=== PATIENT | female | born 1995 | race African-American/Black ===

== ENCOUNTER 2022-08-08 03:22 | Emergency (ER) | payer OTHER ==
[2022-08-08] MEDS ORDERED: LACTATED RINGERS SOLUTION 1000 ML INFUS.BAG IV ONE (04:07)
[2022-08-08] MEDS ORDERED: ONDANSETRON 4 MG/2 ML VIAL IVPUSH ONE (04:07)
[2022-08-08] MEDS ORDERED: ACETAMINOPHEN 1000 MG/100 ML BAG IVPB ONE (04:07)
[2022-08-08] MEDS ORDERED: FAMOTIDINE 20 MG/50 ML IVPB 20 MG/50 ML MG IVPB ONE (04:07)
[2022-08-08] MEDS ORDERED: ONDANSETRON 4 MG/2 ML VIAL ONE (04:12)
[2022-08-08] MEDS ORDERED: ACETAMINOPHEN INJECTION 100 ML IVPB ONE (04:12)
[2022-08-08] MEDS ORDERED: FAMOTIDINE 10 MG/ML VIAL IVPB ONE (04:13)
[2022-08-08 04:43] LABS: HEMATOCRIT 35.3 % (32.4-45.2); HEMOGLOBIN 11.6 GM/dL (10.7-15.3); MCH 30.8 pg (25.7-33.7); MCHC 32.8 g/dl (32.0-36.0); MEAN PLT VOLUME 8.8 fl (7.5-11.1); PLATELET COUNT 235 10^3/uL (134-434); RBC 3.76 M/mm3 (3.60-5.2); RDW 14.2 % (11.6-15.6); WHITE BLOOD COUNT 6.2 K/mm3 (4.0-10.0)
[2022-08-08 04:53] LABS: INR 1.16 (0.83-1.09); PROTHROMBIN TIME (PATIENT) 13.4 SEC (9.7-13.0)
[2022-08-08 04:55] LABS: ACTIVATED PTT 31.1 SECONDS (25.2-36.5)
[2022-08-08 05:11] LABS: ALBUMIN 4.3 g/dl (3.4-5.0); BLOOD UREA NITROGEN 8.2 mg/dL (7-18); MAGNESIUM 1.7 mg/dL (1.8-2.4)
[2022-08-08 05:14] LABS: CREATININE 0.8 mg/dL (0.55-1.3)
[2022-08-08 05:15] VITALS: BP 115/63; PULSE 76; RESP 18; TEMP 97.9; BMI 16.7
[2022-08-08 05:15] LABS: BILIRUBIN,TOTAL 2.8 mg/dL (0.2-1)
[2022-08-08 05:16] LABS: TOT PROT 7.8 g/dl (6.4-8.2)
[2022-08-08 06:44] LABS: ANISOCYTOSIS 0; MACROCYTOSIS 0; OVALOCYTE 1+; TEAR DROP CELLS 1+
[2022-08-08 08:18] LABS: PH,URINE 5.5 (5.0-8.0); URINE APPEARANCE CLEAR; URINE BILIRUBIN NEGATIVE (NEGATIVE); URINE COLOR YELLOW; URINE GLUCOSE (UA) NEGATIVE (NEGATIVE); URINE KETONE 2+ (NEGATIVE); URINE LEUK ESTERASE NEGATIVE (NEGATIVE); URINE NITRITE NEGATIVE (NEGATIVE); URINE PROTEIN TRACE (NEGATIVE)
[2022-08-08 08:21] LABS: HCG,QUALITATIVE URINE Negative
== END 2022-08-08 06:47 | disposition home or self-care (01) ==
LOC: JER 03:22
PROC: 3E033GC Introduction of Other Therapeutic Substance into Peripheral Vein, Percutaneous Approach (ICD-10-PCS; principal; 2022-08-08)
DX: R11.10 Vomiting, unspecified (principal)
CPT/HCPCS: 0241U-QW; 36415; 80053; 81003; 83690; 83735; 84703; 85025; 85610; 85730; 86850; 86900; 86901; 87086; 93005; 93010; 99284-25

== ENCOUNTER 2022-08-10 16:47 | Emergency (ER) | payer OTHER ==
[2022-08-10 17:14] VITALS: BP 129/78; PULSE 68; RESP 19; BMI 22.1
[2022-08-10] MEDS ORDERED: MAG HYDROX/AL HYDROX/SIMETH 30 ML UNIT-DOSE CUP PO ONE (18:18)
[2022-08-10] MEDS ORDERED: SODIUM CHLORIDE 1,000 ML IV STA (18:18)
[2022-08-10] MEDS ORDERED: ONDANSETRON 4 MG/2 ML VIAL IVPUSH ONE (18:18)
[2022-08-10] MEDS ORDERED: FAMOTIDINE 20 MG TABLET PO ONE (18:18)
[2022-08-10] MEDS ORDERED: LORazepam 0.5 MG TABLET PO ONE (18:19)
[2022-08-10] MEDS ORDERED: MAG HYDROX/AL HYDROX/SIMETH 30 ML UNIT-DOSE CUP ONE (18:26)
[2022-08-10] MEDS ORDERED: ONDANSETRON 4 MG/2 ML VIAL ONE (18:27)
[2022-08-10] MEDS ORDERED: FAMOTIDINE 20 MG/50 ML IVPB 20 MG/50 ML MG IVPB ONE ×2 (18:27→18:37)
[2022-08-10 18:48] VITALS: TEMP 99.5
[2022-08-10] MEDS ORDERED: hydrOXYzine PAMOATE 25 MG CAPSULE (FP) PO ONE ×2 (18:53→19:01)
[2022-08-10 19:22] LABS: HEMATOCRIT 39.8 % (32.4-45.2); HEMOGLOBIN 12.6 GM/dL (10.7-15.3); MCH 30.2 pg (25.7-33.7); MCHC 31.6 g/dl (32.0-36.0); MEAN CELL VOLUME 95.4 fl (80-96); RBC 4.17 M/mm3 (3.60-5.2); RDW 14.4 % (11.6-15.6)
[2022-08-10 19:29] LABS: CALCIUM 9.6 mg/dL (8.5-10.1)
[2022-08-10 19:30] LABS: ALBUMIN 4.5 g/dl (3.4-5.0); BLOOD UREA NITROGEN 8.8 mg/dL (7-18)
[2022-08-10 19:33] LABS: CREATININE 0.9 mg/dL (0.55-1.3)
[2022-08-10 19:35] LABS: TOT PROT 8.1 g/dl (6.4-8.2)
[2022-08-10 20:20] LABS: ANISOCYTOSIS 0; HELMET CELLS 0; HOWELL-JOLLY BODIES 0; MACROCYTOSIS 0; OVALOCYTE 0; PLATELET ESTIMATE NORMAL; ROULEAU 0; SICKELED CELLS 0; TARGET CELLS 0; TEAR DROP CELLS 0; TOXIC GRANULATION 0
[2022-08-10 20:27] LABS: PLATELET COUNT 249 10^3/uL (134-434); WHITE BLOOD COUNT 8.3 K/mm3 (4.0-10.0)
== END 2022-08-10 22:14 | disposition home or self-care (01) ==
LOC: JER 16:47
PROC: 3E033GC Introduction of Other Therapeutic Substance into Peripheral Vein, Percutaneous Approach (ICD-10-PCS; principal; 2022-08-10)
DX: R10.84 Generalized abdominal pain (principal); R11.2 Nausea with vomiting, unspecified; R19.7 Diarrhea, unspecified; F41.9 Anxiety disorder, unspecified
CPT/HCPCS: 0241U-QW; 36415; 76705-TC; 80053; 85027; 93005; 93010; 99285-25